=== PATIENT | male | born 1990 | race Caucasian/White ===

== ENCOUNTER 2016-12-04 12:44 | Emergency (ER) | payer BC ==
[2016-12-04] MEDS ORDERED: Adacel Vial IM ONE ×2 (13:03→13:08)
[2016-12-04 13:04] VITALS: BP 140/83; PULSE 90; O2SAT 100
--- NOTE | 2016-12-04 13:08 | ERPHSYRPT ---
- History of Present Illness Time Seen by Provider: 12/04/16 12:48 Source: patient, family () Patient Subjective Stated Complaint: PT STATES HE WAS WORKING ON HIS BATHROOM UPSTAIRS. WHEN HE CUT HIS RIGHT THUMB WITH A POCKET KNIFE. Triage Nursing Assessment: PT ALERT WARM AND DRY RESP EASY NON LABORED HAS APPROX. 2 1/2 CM X 3/4 CM LACERATION TO RIGTH 5TH FINGER NO. BLEEDING NOTED. Physician History: CC: cut right thumb Hx: 26 y/o healthy male patient was cutting pex tubing at home and the knife cut his right thumb. No other injuries. Unsure last tetanus vaccine (it was in [facility]). Occurred this AM [employer]. 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 The flap is only partially viable as it is superficial. - Course Nursing assessment & vital signs reviewed: Yes Ordered Tests: Active Orders 24 hr Category Date Time Status Wound Care STAT Care 12/04/16 13:03 Active Medication Summary Generic Name Dose Route Start Last Admin Trade Name Freq PRN Reason Stop Dose Admin Diphtheria/Tetanus/Acell Pertussis 0.5 ml 12/04/16 13:03 Adacel Vial IM 12/04/16 13:04 .ONCE ONE - Progress Progress Note: 12/04/16 13:06 Wound cleansed with hibiclens. Steri strips applied. Dressing. Tetanus up dated. Advised pt viabililty of flap is uncertain and will not be improved with sutures. Wound care instructions given. Counseled pt/family regarding: diagnosis, need for follow-up - Departure Time of Disposition: 13:07 Departure Disposition: Home Clinical Impression: Laceration of thumb Qualifiers: Encounter type: initial encounter Laterality: right Qualified Code(s): S61.011A - Laceration without foreign body of right thumb without damage to nail , initial encounter Condition: Stable Critical Care Time: No Referrals: VICKY ALLEN FNP [Primary Care Provider] - Instructions: Laceration Repair Steri-Strips Additional Instructions: Keep wound clean and dry. Report any sign of infection right away. Tylenol as directed for discomfort.
== END 2016-12-04 13:23 | disposition home or self-care (01) ==
LOC: ED 12:44
DX: S61.011A Laceration without foreign body of right thumb without damage to nail, initial encounter (principal); W26.0XXA Contact with knife, initial encounter
CPT/HCPCS: 90471; 90715; 99282

== ENCOUNTER 2024-11-14 16:42 | Emergency (ER) | payer BC ==
--- NOTE | 2024-11-14 16:55 | ERPHSYRPT ---
- History of Present Illness Time Seen by Provider: 11/14/24 16:54 Source: patient, family Exam Limitations: no limitations Physician History: This is a 34-year-old white male patient who accidentally hit himself in the head with a postdriver causing a small laceration of the top of his head. He did not lose consciousness but the area was bleeding. Patient's tetanus status is up-to-date. Occurred: just prior to arrival Head Injury Location: parietal Method of Injury: direct blow Loss of Consciousness: no loss of consciousness Associated Symptoms: headaches, No nausea, No vomiting, No syncope, No seizure Allergies/Adverse Reactions: No Known Drug Allergies Allergy (Verified 11/14/24 16:59) Home Medications: Buspirone HCl 10 mg PO BID 11/14/24 [History] Lisinopril 20 mg [Zestril 20 MG] 20 mg PO DAILY 11/14/24 [History] Hx Tetanus, Diphtheria Vaccination/Date Given: No (UNKNOWN) Travel Risk - International Travel Have you traveled outside of the country in past 3 weeks: No - Emerging Infectious Disease Are you exhibiting symptoms associated with any current EIDs: No - Review of Systems Constitutional: No Symptoms Eyes: No Symptoms Ears, Nose, & Throat: No Symptoms Respiratory: No Symptoms Cardiac: No Symptoms Abdominal/Gastrointestinal: No Symptoms Genitourinary Symptoms: No Symptoms Musculoskeletal: No Symptoms Skin: Other (1 cm scalp laceration parietal region left of midline) Neurological: No Symptoms Psychological: No Symptoms Endocrine: No Symptoms Hematologic/Lymphatic: No Symptoms Immunological/Allergic: No Symptoms All Other Systems: Reviewed and Negative - Past Medical History Pertinent Past Medical History: No - Past Surgical History Past Surgical History: Yes - Social History Smoking Status: Never smoker Exposure to second hand smoke: Yes Drug Use: none 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) - Nursing Vital Signs Nursing Vital Signs: Initial Vital Signs Temperature 98.7 F 11/14/24 16:54 Pulse Rate 105 H 11/14/24 16:54 Blood Pressure 150/99 11/14/24 16:54 O2 Sat by Pulse Oximetry 96 11/14/24 16:54 Pain Scale Pain Intensity 3 - Idania Coma Score Best Eye Response ([place]): (4) open spontaneously Best Verbal Response ([place]): (5) oriented Best Motor Response ([place]): (6) obeys commands [place] Total: 15 - Physical Exam General Appearance: no apparent distress, alert, anxiety Head Injury: lacerations (1 cm scalp laceration left of midline parietal region), tenderness (Tenderness in same area. No foreign body) Eye Exam: bilateral eye: normal inspection, PERRL, EOMI ENT Exam: airway nml, nml ext.inspection Neck Exam: supple, trachea midline, full range of motion, normal alignment Cardiovascular/Respiratory Exam: chest non-tender, no respiratory distress Gastrointestinal/Abdominal Exam: soft, non tender, no distention, no mass, no guarding, no ecchymosis, no organomegaly, no pulsatile mass, normal bowel sounds Rectal Exam: not done Back Exam: normal inspection, normal range of motion, No CVA tenderness, No vertebral tenderness Extremity Exam: non-tender, normal range of motion, normal inspection Mental Status Exam: alert, 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, 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 Exam: normal hearing, normal speech, PERRL Coordination/Gait Exam: normal gait, normal cerebellar function Motor/Sensory Exam: no motor deficit, no sensory deficit, no pronator drift Skin Exam: laceration (1 cm scalp laceration parietal region left of midline no foreign body and no active bleeding) Lymphatic Exam: No adenopathy SpO2 Interpretation: normal O2 Delivery: Room Air Procedures - Laceration/Wound Repair Parietal Time of Procedure: 17:20 Wound Location: Left, head Wound Length (cm): 1 Wound's Depth, Shape: superficial, linear Wound Explored: clean Irrigated: Yes Hibiclens Prep: Yes Wound Repaired With: Beto (2 single skin beto placed) Progress: 11/14/24 17:32 No complications. Patient tolerated the procedure well - Progress Progress: improved Progress Note: 11/14/24 17:33 My medical decision making and the assignment of low complexity to this patient's medical issue today is based on review of the patient's past medical history, review of the patient's medication list, reviewed patient drug allergy list, history present illness and physical findings on examination. The workup in this patient does not require radiographic or laboratory studies. Counseled pt/family regarding: diagnosis, need for follow-up Medical Desision Making - Risk of complications Minimal Risk: Minimal risk of morbidity - Departure Departure Disposition: Home Clinical Impression: Scalp laceration Condition: Stable Critical Care Time: No Referrals: DAVID HARGROVE NP [Primary Care Provider] - Follow up/PCP as directed Additional Instructions: Keep the skin laceration repair site dry for 24 hours. After 24 hours may rinse the site with soapy water. Blot dry use a economics department chair. Staple removal in 8 to 10 days. May use Tylenol and ibuprofen for pain control.
[2024-11-14 16:59] VITALS: BP 150/99; PULSE 105; TEMP 98.7; O2SAT 96
== END 2024-11-14 17:40 | disposition home or self-care (01) ==
LOC: ED 16:42
DX: S01.01XA Laceration without foreign body of scalp, initial encounter (principal); W22.8XXA Striking against or struck by other objects, initial encounter
CPT/HCPCS: 12001; 99283